=== PATIENT | male | born 1970 | race Caucasian/White ===

== ENCOUNTER 2023-01-21 18:34 | Emergency (ER) | payer OTHER ==
[2023-01-21] MEDS ORDERED: Sodium Chloride 0.9% 10 ML Syringe FLUSH PRN (18:43)
[2023-01-21] MEDS ORDERED: HYDROmorphone 0.5 MG/0.5 ML Syringe IVPUSH ONE (18:54)
[2023-01-21 18:57] LABS: BASOPHILS ABSOLUTE AUTO 0.01 K/mm3 (0.01-0.08); BASOPHILS PERCENT AUTO 0.1 % (0.1-1.2); EOSINOPHILS ABSOLUTE AUTO 0.12 K/mm3 (0.04-0.54); EOSINOPHILS PERCENT AUTO 1.1 (0.8-7.0); HEMATOCRIT 42.4 % (40.1-51.0); HEMOGLOBIN 14.2 gm/dl (13.7-17.5); IMMATURE GRAN ABSOLUTE AUTO 0.03 K/mm3 (0.00-0.10); IMMATURE GRAN PERCENT AUTO 0.3 % (<=1.0); LYMPHOCYTES PERCENT AUTO 27.1 % (21.8-53.1); MEAN CORPUSCULAR HEMOGLOBIN 28.7 pg (25.7-32.2); MEAN CORPUSCULAR HGB CONC 33.5 g/dl (32.2-35.5); MEAN CORPUSCULAR VOLUME 85.7 fl (79.0-92.2); MEAN PLATELET VOLUME 8.3 fl (9.4-12.3); MONOCYTES ABSOLUTE AUTO 0.97 K/mm3 (0.30-0.82); MONOCYTES PERCENT AUTO 9.1 % (5.3-12.2); NEUTROPHILS ABSOLUTE AUTO 6.66 K/mm3 (1.78-5.38); NEUTROPHILS PERCENT AUTO 62.3 % (34.0-67.9); PLATELET COUNT,PLT 287 K/mm3 (163-337); RED BLOOD CELL COUNT 4.95 M/mm3 (4.63-6.08); WHITE BLOOD CELL COUNT,WBC 10.69 K/mm3 (4.23-9.07)
[2023-01-21] MEDS ORDERED: Iopamidol 612 MG/ML 100 ML Bottle IVPUSH ONE (19:18)
[2023-01-21 19:27] LABS: ALBUMIN 3.8 g/dl (3.4-5.0); ANION GAP 17.8 (5-15); BILIRUBIN TOTAL 0.5 mg/dL (0.2-1.0); BUN/CREATININE RATIO 17.8 (14-18); CREATININE 0.9 mg/dL (0.7-1.3); EST CRCL DRUG DOSING (CG) 108.51 mL/min; POTASSIUM,K 3.8 mEq/L (3.5-5.1); PROTEIN TOTAL,TP 7.5 g/dl (6.4-8.2)
== END 2023-01-21 20:29 | disposition home or self-care (01) ==
LOC: JD.ED 18:34
DX: S22.42XA Multiple fractures of ribs, left side, initial encounter for closed fracture (principal); S50.812A Abrasion of left forearm, initial encounter; S00.81XA Abrasion of other part of head, initial encounter; Z88.1 Allergy status to other antibiotic agents; Z88.2 Allergy status to sulfonamides; V49.40XA Driver injured in collision with unspecified motor vehicles in traffic accident, initial encounter; Y92.410 Unspecified street and highway as the place of occurrence of the external cause
CPT/HCPCS: 36415; 70450; 71260; 72125; 74177; 80053; 80307; 83690; 85025; 96374; 99285; J1170; J3490; Q9967; 99284